=== PATIENT | male | born 1960 | race Caucasian/White ===

== ENCOUNTER 2019-09-02 11:24 | Emergency (ER) | payer BC ==
[~2019-09-02] VITALS: Ht 185.4 cm; Wt 77.3 kg
[2019-09-02 11:29] VITALS: BP 128/90
== END 2019-09-02 12:20 | disposition home or self-care (01) ==
LOC: ER 11:26
DX: S89.92XA Unspecified injury of left lower leg, initial encounter (principal); Y08.89XA Assault by other specified means, initial encounter; Y93.89 Activity, other specified; Y92.89 Other specified places as the place of occurrence of the external cause; Y99.8 Other external cause status
CPT/HCPCS: 73564; 99283